=== PATIENT | female | born 1985 | race American Indian/Alaskan Native ===

== ENCOUNTER 2017-01-08 14:40 | Outpatient (CLI) | payer MEDICAID ==
--- NOTE | 2017-01-08 15:57 | Ultrasound Report ---
RIGHT BREAST AND AXILLARY ULTRASOUND: 01/08/17 14:40:00 CLINICAL: Status post right mastectomy and right breast reconstruction. Palpable lumps in the right axilla. FINDINGS: Ultrasound of the right axillary tail and the right axilla was performed and demonstrated three oval solid hypoechoic superficial masses which are intimately associated with the skin. A mass at 10:30 o'clock 12 cm from the nipple measures 6 x 7 x 7 mm. An oval mass in the mid right axilla measures 1.0 x 1.0 x 0.7 cm. A more lateral superficial oval mass contiguous to the skin measures 0.7 x 0.7 x 0.4 cm. The largest mass demonstrates posterior enhancement. No central blood flow by color Doppler. IMPRESSION: Probably benign masses of the axillary tail of the reconstructed breast in the right axilla. I suspect that these are benign epidermal inclusion cysts or superficial benign oil cysts. BI-RADS 3 - - Probably Benign RECOMMENDATION: Three-month followup with ultrasound of the right axilla.
== END 2017-01-08 14:41 | disposition home or self-care (01) ==
LOC: SPVWC 14:40
PROVIDERS: ATTEND Internal Medicine Hematology & Oncology
DX: N63 Unspecified lump in breast (principal); Z90.11 Acquired absence of right breast and nipple; Z85.3 Personal history of malignant neoplasm of breast

== ENCOUNTER 2017-01-10 11:35 | Emergency (ER) | payer MEDICAID ==
--- NOTE | 2017-01-10 12:56 | XRay Report ---
Chest 2 views: Compared to 07/03/16. History: Shortness of breath. Findings: Normal cardiomediastinal silhouette. Trachea is midline. No consolidation, pneumothorax or pleural effusion. Tip of the Port-A-Cath at upper superior vena cava. Impression: No acute cardiopulmonary findings.
[2017-01-10] MEDS ORDERED: TORADOL IV ONE (21:40)
[2017-01-10] MEDS ORDERED: MORPHINE IV ONE (21:40)
[2017-01-10] MEDS ORDERED: NACL 0.9% 1000 ML 1,000 ML IV ONE (21:41)
--- NOTE | 2017-01-10 21:41 | Emergency Department Report ---
ED General Adult HPI - General Chief complaint: Chest Pain Stated complaint: CHEST PAIN Time Seen by Provider: 01/10/17 21:26 Source: patient, RN notes reviewed, old records reviewed Mode of arrival: Ambulatory Limitations: No Limitations - History of Present Illness Initial comments: This is a 31-year-old female. She is previously unknown to me. Her oncologist is Dr. Krishnamurthy. Patient has a past medical history of breast cancer, status post bilateral mastectomy, reports involvement of the notes. Currently receiving chemotherapy. Has a left-sided thoracic wall port. Patient presents to the ER complaining of central and right-sided chest pain/ breast pain. The pain increases with palpation. It does not radiate to the back, arms or neck. There is no nausea, there is no diaphoresis, there is positive shortness of breath. The patient recently had a breast expansion done earlier on this week. There is no leg pain. There is no leg swelling. No recent trips greater than 4 hours. No recent hospital admissions. No hematemesis, no bright red blood per rectum. Chest pain has been present for one week. -: Gradual Location: chest Radiation: non-radiation Quality: aching Improves with: rest Worsens with: movement Associated Symptoms: chest pain, shortness of breath - Related Data Home Medications Medication Instructions Recorded Confirmed Last Taken Fexofenadine/Pseudoephedrine 1 each PO QDAY 01/29/16 08/09/16 07/26/16 [Brittany-D 24 Hour Tablet] 1 Montelukast [Singulair] 10 mg PO QDAY 01/29/16 08/09/16 07/26/16 10mg ALPRAZolam [Xanax TAB] 0.5 mg PO TID PRN 07/04/16 08/09/16 07/26/16 0.5mg Citalopram Hydrobromide [celeXA] 40 mg PO DAILY 07/04/16 08/09/16 07/26/16 40mg Diphenoxylate HCl/Atropine 1 tab PO PRN PRN 07/04/16 08/09/16 08/06/16 [Lomotil 2.5-0.025 mg Tablet] 1 Furosemide [Lasix] 20 mg PO QDAY 07/04/16 08/09/16 07/26/16 20mg OLANzapine [ZyPREXA] 10 mg PO DAILY 07/04/16 08/09/16 07/26/16 10mg Quetiapine Fumarate [SEROquel] 50 mg PO QDAY 07/04/16 08/09/16 07/26/16 50mg buPROPion SR [Wellbutrin Sr] 150 mg PO QAM 07/04/16 08/09/16 1 Week Ago Previous Rx's Medication Instructions Recorded Last Taken Type HYDROcodone/APAP 5-325 [Kistler 1 each PO Q6HR PRN #30 tablet 07/09/16 Unknown Rx 5/325] Cyclobenzaprine [Flexeril] 10 mg PO TID PRN #20 tablet 07/10/16 07/26/16 Rx 10mg Ketorolac [Toradol] 10 mg PO Q6H PRN #20 tablet 01/11/17 Unknown Rx Allergies Allergy/AdvReac Type Severity Reaction Status Date / Time latex Allergy Hives, Verified 01/29/16 08:57 Fevers and Rash ED Review of Systems ROS: Stated complaint: CHEST PAIN Other details as noted in HPI Constitutional: denies: fever Eyes: denies: vision change ENT: denies: epistaxis Respiratory: denies: cough Cardiovascular: chest pain Gastrointestinal: denies: abdominal pain Genitourinary: denies: dysuria Musculoskeletal: denies: back pain Skin: denies: lesions Neurological: denies: headache Psychiatric: anxiety ED Past Medical Hx - Past Medical History Previous Medical History?: Yes Hx Hypertension: No Hx Renal Disease: No Hx of Cancer: Yes (double lymphnodes removed bilaterally) Hx Headaches / Migraines: Yes (MIGRAINES) Hx Asthma: No Hx HIV: No - Surgical History Hx Breast Surgery: Yes (RIGHT BREAST BX 12/2015) - Social History Smoking Status: Unknown if ever smoked - Medications Home Medications: Home Medications Medication Instructions Recorded Confirmed Last Taken Type Fexofenadine/Pseudoephedrine 1 each PO QDAY 01/29/16 08/09/16 07/26/16 History [Brittany-D 24 Hour Tablet] 1 Montelukast [Singulair] 10 mg PO QDAY 01/29/16 08/09/16 07/26/16 History 10mg ALPRAZolam [Xanax TAB] 0.5 mg PO TID PRN 07/04/16 08/09/16 07/26/16 History 0.5mg Citalopram Hydrobromide [celeXA] 40 mg PO DAILY 07/04/16 08/09/16 07/26/16 History 40mg Diphenoxylate HCl/Atropine 1 tab PO PRN PRN 07/04/16 08/09/16 08/06/16 History [Lomotil 2.5-0.025 mg Tablet] 1 Furosemide [Lasix] 20 mg PO QDAY 07/04/16 08/09/16 07/26/16 History 20mg OLANzapine [ZyPREXA] 10 mg PO DAILY 07/04/16 08/09/16 07/26/16 History 10mg Quetiapine Fumarate [SEROquel] 50 mg PO QDAY 07/04/16 08/09/16 07/26/16 History 50mg buPROPion SR [Wellbutrin Sr] 150 mg PO QAM 07/04/16 08/09/16 1 Week Ago History HYDROcodone/APAP 5-325 [Kistler 1 each PO Q6HR PRN #30 tablet 07/09/16 08/09/16 Unknown Rx 5/325] Cyclobenzaprine [Flexeril] 10 mg PO TID PRN #20 tablet 07/10/16 08/09/16 Rx 10mg Ketorolac [Toradol] 10 mg PO Q6H PRN #20 tablet 01/11/17 Unknown Rx ED Physical Exam - General Limitations: No Limitations General appearance: alert, in no apparent distress - Head Head exam: Present: atraumatic, normocephalic - Eye Eye exam: Present: normal appearance, EOMI. Absent: nystagmus - ENT ENT exam: Present: normal exam, normal orophraynx, mucous membranes moist, normal external ear exam - Neck Neck exam: Present: normal inspection, full ROM. Absent: tenderness, meningismus - Respiratory Respiratory exam: Present: normal lung sounds bilaterally, chest wall tenderness , other (patient has reproducible anterior chest wall tenderness. There is no redness, pus or streaking. Breasts are minimally tender and the medial aspect, this is where the patient is having pain. During the breast examination, I am escorted by nurse Janice Riley. Absent: respiratory distress, wheezes, rales, rhonchi, stridor - Cardiovascular Cardiovascular Exam: Present: normal rhythm, tachycardia, normal heart sounds. Absent: systolic murmur, diastolic murmur, rubs, gallop - GI/Abdominal GI/Abdominal exam: Present: soft, normal bowel sounds. Absent: distended, tenderness, guarding, rebound, rigid, pulsatile mass - Extremities Exam Extremities exam: Present: normal inspection, full ROM, normal capillary refill. Absent: tenderness, pedal edema, joint swelling, calf tenderness - Back Exam Back exam: Present: normal inspection, full ROM. Absent: tenderness, CVA tenderness (R), CVA tenderness (L), muscle spasm, paraspinal tenderness, vertebral tenderness - Neurological Exam Neurological exam: Present: alert, oriented X3, normal gait, other (Extraocular movements intact. Tongue midline. No facial droop. Facial sensation intact to light touch in the V1, V2, V3 distribution bilaterally. 5 and 5 strength in 4 extremities.. Sensation is intact to light touch in 4 extremities.). Absent : motor sensory deficit - Psychiatric Psychiatric exam: Present: anxious - Skin Skin exam: Present: warm, dry, intact, normal color. Absent: rash ED Course Vital Signs 01/10/17 01/10/17 01/10/17 11:58 22:22 22:28 Temperature 98.1 F 98.5 F Pulse Rate 108 H 108 H Respiratory 14 Rate Blood Pressure 144/101 Blood Pressure 128/78 [Left] O2 Sat by Pulse 97 98 99 Oximetry 01/10/17 01/10/17 01/10/17 22:30 22:40 22:50 Temperature Pulse Rate Respiratory Rate Blood Pressure 123/81 126/84 126/84 Blood Pressure [Left] O2 Sat by Pulse 99 100 100 Oximetry 01/10/17 01/10/17 01/10/17 23:00 23:06 23:10 Temperature Pulse Rate 104 H Respiratory 14 21 Rate Blood Pressure 124/91 124/91 Blood Pressure [Left] O2 Sat by Pulse 100 100 100 Oximetry 01/10/17 01/10/17 01/10/17 23:14 23:20 23:30 Temperature Pulse Rate 105 H 106 H 105 H Respiratory 21 15 17 Rate Blood Pressure 127/66 131/75 131/75 Blood Pressure [Left] O2 Sat by Pulse 100 100 99 Oximetry 01/10/17 01/11/17 01/11/17 23:40 00:47 00:50 Temperature Pulse Rate 103 H 103 H 100 H Respiratory 20 18 18 Rate Blood Pressure 133/70 119/61 119/61 Blood Pressure [Left] O2 Sat by Pulse 97 Oximetry 01/11/17 01/11/17 01/11/17 01:00 01:10 01:20 Temperature Pulse Rate 96 H 104 H 98 H Respiratory 20 19 18 Rate Blood Pressure 113/44 113/44 119/54 Blood Pressure [Left] O2 Sat by Pulse Oximetry 01/11/17 01/11/17 01/11/17 01:30 01:40 01:50 Temperature Pulse Rate 97 H 98 H 96 H Respiratory 17 19 19 Rate Blood Pressure 131/75 121/59 121/59 Blood Pressure [Left] O2 Sat by Pulse Oximetry 01/11/17 01/11/17 01/11/17 02:00 02:10 02:11 Temperature 98.6 F Pulse Rate 101 H 99 H Respiratory 15 19 Rate Blood Pressure 126/54 126/54 Blood Pressure [Left] O2 Sat by Pulse Oximetry 01/11/17 01/11/17 01/11/17 02:20 02:30 02:40 Temperature Pulse Rate 96 H 94 H 92 H Respiratory 20 18 20 Rate Blood Pressure 128/58 128/58 115/56 Blood Pressure [Left] O2 Sat by Pulse Oximetry 01/11/17 01/11/17 01/11/17 02:50 03:00 03:21 Temperature 98.6 F Pulse Rate 96 H 83 Respiratory 21 20 Rate Blood Pressure 115/56 115/56 Blood Pressure [Left] O2 Sat by Pulse Oximetry - Reevaluation(s) Reevaluation #1: 01/10/17 23:05 Differential diagnosis: Costochondritis, pain secondary to breast recruiting specialist, acute coronary syndrome, pulmonary embolus, history of breast cancer Assessment and plan: 31-year-old female with 1 week of reproducible chest wall pain, pain was present prior to her receiving her breast expansion. She has been receiving breast expansion for a few months. EKG morphologically abnormal. Low risk by PASTORA score, low risk by heart score, chest pain present for 1 week. As per the [employer] clinical policy, myocardial infarction may be excluded with 1 set of cardiac enzymes his symptoms have been present for greater than 8 hours. there is a reproducible component to her chest pain, but with her tachycardia, left axis deviation, reported shortness of breath, and active cancer, a d-dimer sent to risk stratify the patient, and comes back elevated. Therefore, a CT angiogram is ordered to exclude pulmonary embolus. Her pain will be treated symptomatically. 01/10/17 23:10 Reevaluation #2: 01/11/17 01:16 v/q low probability troponin negative x 2. patient feels improved she will Be discharged with pain medication, instructions to follow up with outpatient cardiology for abnormal nonspecific EKG changes. The patient has been Observed in the ER for a prolonged period of time without clinical decompensation. ED Medical Decision Making - Lab Data Result diagrams: 01/10/17 21:30 01/10/17 21:30 Vital Signs 01/10/17 01/10/17 01/10/17 11:58 22:22 22:28 Temperature 98.1 F 98.5 F Pulse Rate 108 H 108 H Respiratory 14 Rate Blood Pressure 144/101 Blood Pressure 128/78 [Left] O2 Sat by Pulse 97 98 99 Oximetry Lab Results 01/10/17 01/10/17 01/10/17 Range/Units 21:30 21:30 21:30 WBC 7.6 (4.5-11.0) K/mm3 RBC 4.05 (3.65-5.03) M/mm3 Hgb 12.6 (10.1-14.3) gm/dl Hct 38.1 (30.3-42.9) % MCV 94 (79-97) fl MCH 31 (28-32) pg MCHC 33 (30-34) % RDW 14.8 (13.2-15.2) % Plt Count 314 (140-440) K/mm3 Lymph % (Auto) 24.6 (13.4-35.0) % [place] % (Auto) 15.1 H (0.0-7.3) % Eos % (Auto) 2.2 (0.0-4.3) % Baso % (Auto) 0.6 (0.0-1.8) % Lymph # 1.9 (1.2-5.4) K/mm3 [place] # 1.1 H (0.0-0.8) K/mm3 Eos # 0.2 (0.0-0.4) K/mm3 Baso # 0.0 (0.0-0.1) K/mm3 Seg Neutrophils % 57.5 (40.0-70.0) % Seg Neutrophils # 4.3 (1.8-7.7) K/mm3 PT 12.5 (12.2-14.9) Sec. INR 0.94 (0.87-1.13) APTT 37.1 H (24.2-36.6) Sec. D-Dimer (0-234) ng/mlDDU Sodium 135 L (137-145) mmol/L Potassium 4.0 (3.6-5.0) mmol/L Chloride 96.8 L (98-107) mmol/L Carbon Dioxide 23 (22-30) mmol/L Anion Gap 19 mmol/L BUN 13 (7-17) mg/dL Creatinine 0.6 L (0.7-1.2) mg/dL Estimated GFR > 60 ml/min BUN/Creatinine Ratio 21.66 % Glucose 94 (65-100) mg/dL Calcium 9.3 (8.4-10.2) mg/dL Troponin T < 0.010 (0.00-0.029) ng/mL 01/10/17 Range/Units 21:30 WBC (4.5-11.0) K/mm3 RBC (3.65-5.03) M/mm3 Hgb (10.1-14.3) gm/dl Hct (30.3-42.9) % MCV (79-97) fl MCH (28-32) pg MCHC (30-34) % RDW (13.2-15.2) % Plt Count (140-440) K/mm3 Lymph % (Auto) (13.4-35.0) % [place] % (Auto) (0.0-7.3) % Eos % (Auto) (0.0-4.3) % Baso % (Auto) (0.0-1.8) % Lymph # (1.2-5.4) K/mm3 [place] # (0.0-0.8) K/mm3 Eos # (0.0-0.4) K/mm3 Baso # (0.0-0.1) K/mm3 Seg Neutrophils % (40.0-70.0) % Seg Neutrophils # (1.8-7.7) K/mm3 PT (12.2-14.9) Sec. INR (0.87-1.13) APTT (24.2-36.6) Sec. D-Dimer 948.9 H (0-234) ng/mlDDU Sodium (137-145) mmol/L Potassium (3.6-5.0) mmol/L Chloride (98-107) mmol/L Carbon Dioxide (22-30) mmol/L Anion Gap mmol/L BUN (7-17) mg/dL Creatinine (0.7-1.2) mg/dL Estimated GFR ml/min BUN/Creatinine Ratio % Glucose (65-100) mg/dL Calcium (8.4-10.2) mg/dL Troponin T (0.00-0.029) ng/mL The patient reports that she is not - EKG Data -: EKG Interpreted by Me Rate: tachycardia - EKG Data When compared to previous EKG there are: no significant change 01/10/17 23:07 sinus tachycardia, left axis deviation, left ventricular hypertrophy, poor R-wave progression, not morphologically consistent with STEMI , borderline S1 every 3 T3, When compared to prior EKG from 07/03/2016, left axis deviation is new, poor R progression is new, left ventricular hypertrophy is new, S1 every 3 T3 is new 01/10/17 23:10 - Radiology Data Radiology results: report reviewed, image reviewed interpreted by me: X-ray the chest is negative. There is a left-sided port noted. Critical care attestation.: If time is entered above; I have spent that time in minutes in the direct care of this critically ill patient, excluding procedure time. ED Disposition Clinical Impression: Chest wall pain Disposition: DISCHARGED TO HOME OR SELFCARE Is pt being admited?: No Does the pt Need Aspirin: No Condition: Stable Instructions: Chest Pain (ED), Costochondritis (ED) Additional Instructions: Take the pain medication as directed. Laboratory studies do not suggest heart attack. Nuclear medicine study indicated low probability for blood clot/ pulmonary embolus in the lung. EKG demonstrated nonspecific changes when compared to prior EKG. Rest and avoid heavy lifting. Follow up with a commodity specialist within the next week. Aniya Roach and Peggy are local commodity specialist. Return to the ER right away with new pain, worsened pain, migration of pain, fevers or chills, intractable nausea or vomiting, inability to tolerate liquid feeds. Prescriptions: Ketorolac [Toradol] 10 mg PO Q6H PRN #20 tablet PRN Reason: Pain Referrals: PRIMARY CARE, [Primary Care Provider] - 3-5 Days BREANA WOMACK MD [Staff Physician] - 3-5 Days ANGELIKA ROACH MD [Staff Physician] - 3-5 Days
[2017-01-10 21:54] LABS: Basophils % (Auto) 0.6 % (0.0-1.8); Eosinophils % (Auto) 2.2 % (0.0-4.3); Hematocrit 38.1 % (30.3-42.9); Hemoglobin 12.6 gm/dl (10.1-14.3); Mean Corpuscular HGB Conc 33 % (30-34); Mean Corpuscular Hemoglobin 31 pg (28-32); Mean Corpuscular Volume 94 fl (79-97); Platelet Count 314 K/mm3 (140-440); Red Blood Count 4.05 M/mm3 (3.65-5.03); Red Cell Distribution Width 14.8 % (13.2-15.2); White Blood Count 7.6 K/mm3 (4.5-11.0)
[2017-01-10 22:07] LABS: INR 0.94 (0.87-1.13)
[2017-01-10 22:08] LABS: Partial Thromboplastin Time 37.1 Sec. (24.2-36.6)
[2017-01-10 22:12] LABS: Anion Gap 19 mmol/L; BUN/Creatinine Ratio 21.66; Blood Urea Nitrogen 13 mg/dL (7-17); Calcium 9.3 mg/dL (8.4-10.2); Carbon Dioxide 23 mmol/L (22-30); Chloride 96.8 mmol/L (98-107); Glucose 94 mg/dL (65-100); Sodium 135 mmol/L (137-145)
[2017-01-10] MEDS ORDERED: NACL ONE (23:16)
[2017-01-11] MEDS ORDERED: ATARAX PO ONE (00:41)
--- NOTE | 2017-01-11 01:10 | Nuclear Medicine Report ---
FINAL REPORT EXAM: NM LUNG SCAN PERF/VENT HISTORY: cp hx of breat ca TECHNIQUE: The nuclear medicine ventilation perfusion study was performed. The patient was given 15 millicuries Xe-133 gas for the ventilation study and 5 mCi of technetium 99m MAA for the perfusion study. Images were acquired in the standard projections. Correlation is made with chest radiograph performed on the same date. PRIORS: None. FINDINGS: There is normal distribution of the radiopharmaceutical from both the ventilation and perfusion studies. There are no defects. IMPRESSION: Normal VQ scan. No evidence of PE.
[2017-01-11 03:21] VITALS: BP 115/56
== END 2017-01-11 03:30 | disposition home or self-care (01) ==
LOC: ED 11:35
DX: R07.89 Other chest pain (principal); G43.909 Migraine, unspecified, not intractable, without status migrainosus; Z91.040 Latex allergy status; Z85.72 Personal history of non-Hodgkin lymphomas
CPT/HCPCS: 36415; 71020; 78582; 80048; 84484; 85025; 85379; 85610; 85730; 93005; 93010; 96361; 96374; 96375; 99284; A9540; A9558; J1885; J2270; J7030

== ENCOUNTER 2017-07-07 09:08 | Day surgery (SDC) | payer MEDICAID ==
[~2017-07-07 09:08] MED LIST: ANCEF/STERILE WATER 2 GM/20 ML IV NR
[2017-07-07 10:51] VITALS: BP 108/48
--- NOTE | 2017-07-07 11:01 | Anesthesia Day of Surgery ---
Anesthesia Day of Surgery - Day of Surgery Patient Examined: Yes Patient H&P Reviewed: Yes Patient is NPO: Yes
--- NOTE | 2017-07-07 11:01 | Anesthesia Consultation ---
Anesthesia Consult and Med Hx Date of service: 07/07/17 - Airway Anesthetic Teeth Evaluation: Good ROM Head & Neck: Adequate Mental/Hyoid Distance: Adequate Mallampati Class: Class III Intubation Access Assessment: Probably Good - Pulmonary Exam CTA: Yes - Cardiac Exam Cardiac Exam: RRR - Pre-Operative Health Status ASA Pre-Surgery Classification: ASA3 Proposed Anesthetic Plan: General - Pulmonary Hx Smoking: No Hx Asthma: No SOB: Yes Hx Sleep Apnea: No (SHAHRIAR PRE SCREEN LOW RISK) - Cardiovascular System Hx Hypertension: No - Central Nervous System Hx Psychiatric Problems: Yes (depression/anxiety) - Gastrointestinal Hx Gastroesophageal Reflux Disease: No - Endocrine Hx Renal Disease: No Hx Non-Insulin Dependent Diabetes: No - Hematic Hx Anemia: No - Other Systems Hx Alcohol Use: Yes (IN THE PAST wine) Hx Cancer: Yes (RIGHT BREAST CA- just completed 6 months IV chemo, now on Taxol) Hx Obesity: No
[2017-07-07] MEDS ORDERED: DILAUDID IV PRN (11:02)
[2017-07-07] MEDS ORDERED: ZOFRAN IV PRN (11:02)
[2017-07-07] MEDS ORDERED: PERCOCET 5/325 PO PRN (11:02)
[2017-07-07] MEDS ORDERED: NACL BACTERIOSTATIC INFILTRATI ONE (11:06)
[2017-07-07 11:42] LABS: Basophils % (Auto) 0.7 % (0.0-1.8); Eosinophils % (Auto) 2.7 % (0.0-4.3); Hematocrit 41.7 % (30.3-42.9); Hemoglobin 13.9 gm/dl (10.1-14.3); Mean Corpuscular HGB Conc 33 % (30-34); Mean Corpuscular Hemoglobin 31 pg (28-32); Mean Corpuscular Volume 93 fl (79-97); Platelet Count 310 K/mm3 (140-440); Red Cell Distribution Width 14.2 % (13.2-15.2); White Blood Count 6.2 K/mm3 (4.5-11.0)
[2017-07-07] MEDS ORDERED: LACTATED RINGERS 1,000 ML IV SCH (12:00)
[2017-07-07] MEDS ORDERED: PEPCID IV NR (12:00)
[2017-07-07] MEDS ORDERED: VERSED IV NR (12:00)
[2017-07-07] MEDS ORDERED: DIPRIVAN 10 MG/ML IV ONE (12:19)
[2017-07-07] MEDS ORDERED: XYLOCAINE MPF 2% ONE (12:19)
[2017-07-07] MEDS ORDERED: SUBLIMAZE ONE (12:19)
[2017-07-07] MEDS ORDERED: DILAUDID ONE (14:01)
[2017-07-07] MEDS ORDERED: ZOFRAN ONE (15:03)
[2017-07-07] MEDS ORDERED: DECADRON ONE (15:03)
--- NOTE | 2017-07-07 17:01 | Discharge Summary ---
Short Stay Discharge Plan Activity: other (AVOID EXCESSIVE UPPER BODY ACTIVITY AND RAISING ARMS ABOVE HEAD ) Weight Bearing Status: Full Weight Bearing Diet: regular Wound: remove dressing (72HRS) Follow up with: Araceli TUTTLE [Other] - 6 Weeks WORK,DAMIAN Charles JR, MD [Staff Physician] - 7 Days
--- NOTE | 2017-07-07 17:04 | Short Stay Summary ---
Short Stay Documentation Date of service: 07/07/17 - Allergies and Medications Current Medications: Allergies latex Allergy (Verified 01/29/16 08:57) Hives, Fevers and Rash Home Medications Medication Instructions Recorded Confirmed Last Taken Type Fexofenadine/Pseudoephedrine 1 each PO QDAY 01/29/16 07/07/17 06/23/17 History [Brittany-D 24 Hour Tablet] Montelukast [Singulair] 10 mg PO QDAY 01/29/16 07/07/17 06/30/17 History ALPRAZolam [Xanax TAB] 0.5 mg PO TID PRN 07/04/16 07/07/17 07/06/17 History Furosemide [Lasix] 20 mg PO QDAY PRN 07/04/16 07/07/17 06/09/17 History Quetiapine Fumarate [SEROquel] 50 mg PO QDAY 07/04/16 07/07/17 06/09/17 History buPROPion SR [Wellbutrin Sr] 150 mg PO QAM 07/04/16 07/07/17 07/08/16 History Clonidine HCl [Clonidine HCl] 1 tab PO QHS 07/02/17 07/07/17 07/06/17 History Tamoxifen Citrate 20 mg PO QDAY 07/02/17 07/07/17 06/30/17 History Temazepam 15 mg PO QHS 07/02/17 07/07/17 07/06/17 History Vitamin D3 5,000 units PO DAILY 07/02/17 07/07/17 07/06/17 History Active Medications Cefazolin Sodium (Ancef/Sterile Water 2 Gm/20 Ml) 2 gm IV PREOP NR Stop: 07/07/17 23:59 Famotidine (Pepcid) 20 mg IV PREOP NR Stop: 07/07/17 23:00 Last Admin: 07/07/17 11:55 Dose: 20 mg Hydromorphone HCl (Dilaudid) 0.5 mg IV Q10MIN PRN PRN Reason: Pain , Severe (7-10) Stop: 07/07/17 18:00 Lactated Ringer's (Lactated Ringers) 1,000 mls @ 100 mls/hr IV DIRECT LU Last Admin: 07/07/17 11:49 Dose: 100 mls/hr Midazolam HCl (Versed) 2 mg IV PREOP NR Stop: 07/07/17 23:59 Last Admin: 07/07/17 11:53 Dose: 2 mg - Brief post op/procedure progress note Date of procedure: 07/07/17 Pre-op diagnosis: ACQUIRED BREAST DEFORMITY/HX OF BREAST CANCER/CAPSULAR CONTRACRURE Post-op diagnosis: same Procedure: REMOVAL OF BILATERAL TISSUE EXPANDERS BILATERAL CAPSULECTOMIES FARHAD. PLACEMENT OF SILICONE GEL IMPLANTS Anesthesia: GETA Surgeon: DAMIAN FLORES JR Estimated blood loss: minimal Specimen disposition: to lab Condition: stable - Disposition Condition at discharge: Good Disposition: DC-01 TO HOME OR SELFCARE Short Stay Discharge Plan Follow up with: Araceli TUTTLE [Other] - 6 Weeks DAMIAN FLORES JR, MD [Staff Physician] - 7 Days
--- NOTE | 2017-07-07 18:38 | Post Anesthesia Evaluation ---
- Post Anesthesia Evaluation Patient Participated: Yes Airway Patent: Yes Stable Respiratory Function: Yes Temp > 96.8F: Yes Pain Manageable: Yes Adequeate Hydration: Yes Anesthesia Complications: No
--- NOTE | 2017-07-07 19:37 | Operative Report ---
SERVICE: Plastic Surgery. PREOPERATIVE DIAGNOSES: 1. Bilateral acquired breast deformity. 2. Right breast capsular contracture. 3. History of breast cancer, status post bilateral mastectomies a with tissue radio station operator, breast reconstruction, status post right breast radiation therapy. POSTOPERATIVE DIAGNOSES: 1. Bilateral acquired breast deformity. 2. Right breast capsular contracture. 3. History of breast cancer, status post bilateral mastectomies a with tissue radio station operator, breast reconstruction, status post right breast radiation therapy. PROCEDURE: 1. Bilateral removal of tissue expanders. 2. Right breast capsulectomy. 3. Placement of bilateral silicone gel implants. SURGEON: Ricardo Ness MD OPERATING SYSTEMS SPECIALIST: Won Singh CSA. DESCRIPTION OF PROCEDURE: The patient was brought to the operating room and placed on the table in supine position. Following administration of general anesthesia, bilateral breasts were prepped with Betadine solution, draped in usual sterile manner. A #10 blade scalpel was used to incise previous mastectomy surgical scar, deepened through subcutaneous fat down to the capsule of the implant using the electrocautery. Circumferential dissection was carried out around the implant capsule. Capsule was incised. The implant was removed followed by removal of bilateral breast implant capsules. Hemostasis controlled using electrocautery. A 10 mm flat Dhruv drain was placed on the right side 800 mL silicone gel high profile implant placed on the right and a 750 mL silicone gel implant placed on the left. Closure was performed using interrupted and running subcuticular 2-0 Monocryl sutures followed by Mastisol, Steri-Strips and sterile dressing. The patient tolerated procedure well and returned to recovery room in stable condition. JOB# [id number] FTW/NTS
== END 2017-07-07 09:09 | disposition home or self-care (01) ==
LOC: OR 09:08
PROVIDERS: ATTEND Plastic Surgery
DX: T85.44XA Capsular contracture of breast implant, initial encounter (principal); N64.89 Other specified disorders of breast; Z85.3 Personal history of malignant neoplasm of breast; Z91.040 Latex allergy status; F32.9 Major depressive disorder, single episode, unspecified; F10.21 Alcohol dependence, in remission; Z98.890 Other specified postprocedural states; Y83.8 Other surgical procedures as the cause of abnormal reaction of the patient, or of later complication, without mention of misadventure at the time of the procedure
CPT/HCPCS: 11970; 36415; 81025; 84132; 85025; 87075; 87116; 88300; C1789; J0690; J1100; J1170; J2250; J2405; J2704; J3010; J7120; 88302; 88305

== ENCOUNTER 2017-11-07 08:30 | Outpatient (CLI) | payer MEDICAID ==
--- NOTE | 2017-11-07 10:40 | Fluoroscopy Report ---
UPPER GI SERIES: History: Constipation, intestinal parasite, pain. Examination of the esophagus demonstrates normal distension and motility with no hernia or reflux. The stomach and duodenal bulb demonstrate normal contours with no mucosal abnormalities. There is normal passage of barium through the stomach and duodenum. IMPRESSION: Normal study. SMALL BOWEL SERIES: History: Constipation, intestinal parasite, pain. Barium passes through the small bowel in a normal transit time. There is a normal mucosal pattern with no contour abnormalities identified. IMPRESSION: Normal study.
== END 2017-11-07 08:31 | disposition home or self-care (01) ==
LOC: FLUORO 08:30
PROVIDERS: ATTEND Internal Medicine Gastroenterology
DX: B82.9 Intestinal parasitism, unspecified (principal); K59.00 Constipation, unspecified
CPT/HCPCS: 74249

== ENCOUNTER 2018-02-09 13:22 | Outpatient (CLI) | payer MEDICAID ==
--- NOTE | 2018-02-09 16:23 | Ultrasound Report ---
Right breast ultrasound: Patient with history of bilateral mastectomy and right breast cancer presenting currently with her physician feeling a palpable finding in her right axilla. Ultrasound imaging of the breast tail region and right axilla fails to identify any echogenic mass including lymph nodes. Impression: No pathologic finding. Recommendation: Clinical followup. Additional evaluation based on your suspicion. BI-RADS CATEGORY: 2 = Benign ACR BI-RADS MAMMOGRAPHIC CODES: 0 = Needs additional imaging evaluation; 1 = Negative; 2 = Benign; 3 = Probably benign; 4 = Suspicious; 5 = Malignant; 6 = Known biopsy-proven malignancy COMMENT: 1. Dense breast tissue, i.e., adenosis, fibrocystic changes, etc., may obscure an underlying neoplasm. 2. Approximately 10% of cancers are not detected with mammography. 3. A negative mammography report should not delay biopsy if a clinically suspicious mass is present.
== END 2018-02-09 13:23 | disposition home or self-care (01) ==
LOC: SPVWC 13:22
PROVIDERS: ATTEND Internal Medicine Hematology & Oncology
DX: Z08 Encounter for follow-up examination after completed treatment for malignant neoplasm (principal); M79.89 Other specified soft tissue disorders; Z85.3 Personal history of malignant neoplasm of breast; Z90.13 Acquired absence of bilateral breasts and nipples

== ENCOUNTER 2018-03-30 06:23 | Day surgery (SDC) | payer MEDICAID ==
[2018-03-30] MEDS ORDERED: DILAUDID IV PRN (08:12)
[2018-03-30] MEDS ORDERED: TORADOL IV PRN (08:12)
[2018-03-30] MEDS ORDERED: ZOFRAN IV PRN (08:12)
--- NOTE | 2018-03-30 08:12 | Anesthesia Consultation ---
Anesthesia Consult and Med Hx Date of service: 03/30/18 - Airway Anesthetic Teeth Evaluation: Good ROM Head & Neck: Adequate Mental/Hyoid Distance: Adequate Mallampati Class: Class III Intubation Access Assessment: Probably Good - Pulmonary Exam CTA: Yes - Cardiac Exam Cardiac Exam: RRR - Pre-Operative Health Status ASA Pre-Surgery Classification: ASA3 Proposed Anesthetic Plan: General - Pulmonary Hx Smoking: No Hx Asthma: No SOB: Yes Hx Sleep Apnea: No (SHAHRIAR PRE SCREEN LOW RISK) - Cardiovascular System Hx Hypertension: No - Central Nervous System Hx Psychiatric Problems: Yes (depression/anxiety, Xanax daily) - Gastrointestinal Hx Gastroesophageal Reflux Disease: No - Endocrine Hx Renal Disease: No Hx Non-Insulin Dependent Diabetes: No - Hematic Hx Anemia: No - Other Systems Hx Alcohol Use: Yes (IN THE PAST wine) Hx Substance Use: Yes (MARIJUANA) Hx Cancer: Yes Hx Obesity: No
--- NOTE | 2018-03-30 08:12 | Anesthesia Day of Surgery ---
Anesthesia Day of Surgery - Day of Surgery Patient Examined: Yes Patient H&P Reviewed: Yes Patient is NPO: Yes
[2018-03-30] MEDS ORDERED: DIPRIVAN 10 MG/ML IV ONE (08:23)
[2018-03-30] MEDS ORDERED: SUBLIMAZE ONE (08:27)
[2018-03-30] MEDS ORDERED: XYLOCAINE MPF 2% ONE (08:27)
--- NOTE | 2018-03-30 08:34 | Discharge Summary ---
Short Stay Discharge Plan Activity: no restrictions Weight Bearing Status: Full Weight Bearing Wound: remove dressing (may remove dressing in 3 days) Follow up with: MITCHEL CASTILLO MD [Primary Care Provider] - 6 Weeks WORK,DAMIAN Charles JR, MD [Staff Physician] - 7 Days
--- NOTE | 2018-03-30 08:35 | Short Stay Summary ---
Short Stay Documentation Date of service: 03/30/18 - Allergies and Medications Current Medications: Allergies latex Allergy (Verified 03/26/18 12:07) Hives, Fevers and Rash Home Medications Medication Instructions Recorded Confirmed Last Taken Type Fexofenadine/Pseudoephedrine 1 each PO QDAY 01/29/16 03/26/18 06/23/17 History [Brittany-D 24 Hour Tablet] Montelukast [Singulair] 10 mg PO QDAY 01/29/16 03/26/18 06/30/17 History ALPRAZolam [Xanax TAB] 0.5 mg PO TID PRN 07/04/16 03/26/18 07/06/17 History Furosemide [Lasix] 20 mg PO QDAY PRN 07/04/16 03/26/18 06/09/17 History Quetiapine Fumarate [SEROquel] 50 mg PO QDAY 07/04/16 03/26/18 06/09/17 History buPROPion SR [Wellbutrin Sr] 150 mg PO QAM 07/04/16 03/26/18 07/08/16 History Clonidine HCl 1 tab PO QHS 07/02/17 03/26/18 07/06/17 History Tamoxifen Citrate 20 mg PO QDAY 07/02/17 03/26/18 06/30/17 History Temazepam 15 mg PO QHS 07/02/17 03/26/18 07/06/17 History Vitamin D3 5,000 units PO DAILY 07/02/17 03/26/18 07/06/17 History Citalopram Hydrobromide 40 mg PO DAILY 03/26/18 03/26/18 Unknown History [Citalopram HBr] Active Medications Hydromorphone HCl (Dilaudid) 0.5 mg IV Q10MIN PRN PRN Reason: Pain , Severe (7-10) Stop: 03/30/18 13:00 Lactated Ringer's (Lactated Ringers) 1,000 mls @ 42 mls/hr IV DIRECT LU Ketorolac Tromethamine (Toradol) 30 mg IV ONCE PRN PRN Reason: Pain, Moderate (4-6) Stop: 03/30/18 13:00 Midazolam HCl (Versed) 2 mg IV PREOP NR Stop: 03/30/18 23:59 Ondansetron HCl (Zofran) 4 mg IV ONCE PRN PRN Reason: Nausea And Vomiting Stop: 03/30/18 14:00 - Brief post op/procedure progress note Date of procedure: 03/30/18 Pre-op diagnosis: Acquired Breast Deformity/Hx of Breast Cancer Procedure: Revision of LT Breast Cancer Anesthesia: CHIP Surgeon: DAMIAN FLORES JR Estimated blood loss: minimal Pathology: none Specimen disposition: discarded Condition: stable - Disposition Condition at discharge: Good Disposition: DC-01 TO HOME OR SELFCARE Short Stay Discharge Plan Follow up with: DAMIAN FLORES JR, MD [Staff Physician] - 7 Days MITCHEL CASTILLO MD [Primary Care Provider] - 6 Weeks
[2018-03-30] MEDS ORDERED: VERSED IV NR (09:00)
[2018-03-30] MEDS ORDERED: LACTATED RINGERS 1,000 ML IV SCH (09:00)
[2018-03-30 09:44] LABS: Basophils % (Auto) 0.8 % (0.0-1.8); Eosinophils # (Auto) 0.2 K/mm3 (0.0-0.4); Eosinophils % (Auto) 3.4 % (0.0-4.3); Hematocrit 37.3 % (30.3-42.9); Hemoglobin 12.4 gm/dl (10.1-14.3); Lymphocytes # (Auto) 1.7 K/mm3 (1.2-5.4); Lymphocytes % (Auto) 31.8 % (13.4-35.0); Mean Corpuscular HGB Conc 33 % (30-34); Mean Corpuscular Hemoglobin 32 pg (28-32); Mean Corpuscular Volume 98 fl (79-97); Monocytes # (Auto) 0.3 K/mm3 (0.0-0.8); Monocytes % (Auto) 6.5 % (0.0-7.3); Platelet Count 278 K/mm3 (140-440); Red Blood Count 3.83 M/mm3 (3.65-5.03); Red Cell Distribution Width 14.2 % (13.2-15.2)
[2018-03-30] MEDS ORDERED: NEO SYNEPHRINE/NS Syringe(OR USE) IV ONE (10:03)
[2018-03-30] MEDS ORDERED: DECADRON ONE (10:04)
[2018-03-30] MEDS ORDERED: ZOFRAN ONE (10:04)
[2018-03-30] MEDS ORDERED: NACL 0.9% IR ONE (10:29)
[2018-03-30] MEDS ORDERED: ANCEF/STERILE WATER 2 GM/20 ML IV NR (11:00)
[2018-03-30 15:03] VITALS: BP 114/79
--- NOTE | 2018-03-30 22:54 | Operative Report ---
SERVICE: Plastic Surgery. PREOPERATIVE DIAGNOSES: 1. History of right breast cancer. 2. 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 3. Status post tissue orthotic practitioner implant reconstruction. POSTOPERATIVE DIAGNOSES: 1. History of right breast cancer. 2. 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 3. Status post tissue orthotic practitioner implant reconstruction. PROCEDURE: Revision of the left breast reconstruction. SURGEON: Ricardo Ness MD. DESCRIPTION OF PROCEDURE: The patient was brought to the operating room and placed on the table in supine position. Following administration of general anesthesia, bilateral breasts were prepped with Betadine solution, draped in usual sterile manner. A #10 blade scalpel was used to incise preoperative markings for excision of skin and adipose tissue from the lateral aspect of the breast in order to tighten the skin envelope to achieve more symmetrical positioning of the left breast implant in comparison to the right breast implant. Hemostasis controlled using electrocautery. Closure was performed over 10 mm VASHTI drain using interrupted and running subcuticular 2-0 Monocryl sutures. Mastisol, Steri-Strips, and sterile dressings applied. The patient tolerated the procedure well and returned to recovery room in stable condition. JOB# [id number] FTW/LADAN
== END 2018-03-30 13:15 | disposition home or self-care (01) ==
LOC: OR 06:23
PROVIDERS: ATTEND Plastic Surgery
DX: N65.0 Deformity of reconstructed breast (principal); L72.0 Epidermal cyst; F41.9 Anxiety disorder, unspecified; F32.9 Major depressive disorder, single episode, unspecified; Z85.3 Personal history of malignant neoplasm of breast; Z90.13 Acquired absence of bilateral breasts and nipples
CPT/HCPCS: 19380; 36415; 81025; 85025; 88305; J0690; J1100; J1885; J2250; J2370; J2405; J2704; J3010; J7120